=== PATIENT | female | born 1965 | race Caucasian/White ===

== ENCOUNTER 2018-09-02 11:18 | Day surgery (SDC) | payer OTHER ==
[2018-09-02] MEDS ORDERED: GLUCOSE GEL 15 GRAM TUBE PO ×2 (12:30)
[2018-09-02] MEDS ORDERED: DEXTROSE 50% 50 ML SYRINGE IV ×2 (12:30)
[2018-09-02] MEDS ORDERED: GLUCAGON 1 MG INJ IM (12:30)
[2018-09-02] MEDS ORDERED: GLUCOSE GEL 15 GRAM TUBE BUCCAL (12:30)
[2018-09-02] MEDS: INSULIN ASPART [NOVOLOG] 3 ML PEN IV (12:40)
[2018-09-02] MEDS ORDERED: FENTAnyl 50 MCG/ML VIAL (15:34)
[2018-09-02] MEDS ORDERED: MIDAZOLAM 1 MG/ML 2 ML INJ (15:34)
[2018-09-02] MEDS: CEFAZOLIN 2 GM/50 ML (PMX) 50 ML IVPB (15:45)
[2018-09-02] MEDS ORDERED: LIDOCAINE 2% (SDV) 5 ML INJ (16:13)
[2018-09-02] MEDS ORDERED: PROPOFOL 20 ML (16:13)
[2018-09-02] MEDS ORDERED: CEFAZOLIN 1 GM INJ (16:13)
[2018-09-02] MEDS ORDERED: BACITRACIN/POLYMYXIN 28.35 GM OINT TOP (16:41)
[2018-09-02] MEDS: BUPIVACAINE 0.25% (MPF) 30 ML INJ (16:56)
[2018-09-02] MEDS: LIDOCAINE 1%/EPI (1:100,000) (MDV) 20 ML (16:56)
[2018-09-02] MEDS ORDERED: KETOROLAC 30 MG INJ IV (17:00)
[2018-09-02] MEDS ORDERED: EPHEDrine SULFATE 50 MG/5 ML SYG IV (17:00)
[2018-09-02] MEDS ORDERED: LABETALOL HCL 20MG INJ IV (17:00)
[2018-09-02] MEDS ORDERED: DIPHENHYDRAMINE 50 MG INJ IV (17:00)
[2018-09-02] MEDS ORDERED: ALBUTEROL 0.083% (NEB) 2.5 MG/3 ML AMP HHN (17:00)
[2018-09-02] MEDS ORDERED: MEPERIDINE 25 MG INJ IV (17:00)
[2018-09-02] MEDS ORDERED: ONDANSETRON 4 MG INJ IV ×2 (17:00)
[2018-09-02] MEDS ORDERED: FENTAnyl 50 MCG/ML VIAL IV ×3 (17:00)
[2018-09-02] MEDS ORDERED: hydrALAzine 20 MG INJ IV (17:00)
[2018-09-02] MEDS ORDERED: OXYCODONE/ACETAMINOPHEN (5/325) TAB PO ×2 (17:00)
[2018-09-02] MEDS: KETOROLAC 30 MG INJ IV (17:07)
[2018-09-02] MEDS: IBUPROFEN 600 MG TAB PO (17:16)
== END 2018-09-02 18:00 | disposition home or self-care (01) ==
LOC: SDS 11:18
DX: L72.0 Epidermal cyst (principal); E11.9 Type 2 diabetes mellitus without complications; I10 Essential (primary) hypertension; E78.5 Hyperlipidemia, unspecified; Z79.82 Long term (current) use of aspirin; Z79.84 Long term (current) use of oral hypoglycemic drugs
CPT/HCPCS: 11406; 82962; 88307